=== PATIENT | male | born 1965 | race African-American/Black ===

== ENCOUNTER 2025-03-13 10:36 | Inpatient (IN) | payer OTHER ==
[~2025-03-13] VITALS: Ht 182.9 cm; Wt 84.9 kg
[~2025-03-13 10:36] MED LIST: EMPA10TA MT; FURO-151 MT; INSU100I28 SQ; LISI10TA26 MT; METF-414 PO
[2025-03-13 11:02] LABS: BASOPHILS % 1.2 % (0.0-2.0); DIFFERENTIAL COMMENT 0; EOSINOPHILS % 3.3 % (0.0-5.0); HEMATOCRIT. 40.3 % (42.0-52.0); HEMOGLOBIN. 12.8 g/dL (14.0-18.0); LYMPHOCYTES % 11.7 % (20.0-50.0); MEAN CORPUSCULAR HEMOGLOBIN 27.5 pg (28.0-32.0); MEAN CORPUSCULAR HGB CONC 31.8 g/dL (31.0-37.0); MEAN CORPUSCULAR VOLUME 86.5 fL (80.0-94.0); MEAN PLATELET VOLUME 8.8 fl (7.4-10.4); MONOCYTES % 7.1 % (2.0-8.0); NEUTROPHILS % 76.7 % (40.0-76.0); PLATELET 279 x1000/uL (130-400); RED BLOOD CELL COUNT 4.66 mill/uL (4.7-6.1); RED CELL DISTRIBUTION WIDTH 17.8 % (11.6-14.6)
[2025-03-13 11:21] LABS: CHLORIDE 109 mEq/L (98-107); POTASSIUM 3.9 mEq/L (3.5-5.1); SODIUM 140 mEq/L (136-145)
[2025-03-13 11:22] LABS: CALCIUM 8.3 mg/dL (8.7-10.4); CARBON DIOXIDE 24 mEq/L (21-32)
[2025-03-13 11:27] LABS: CREATININE 1.3 mg/dL (0.6-1.3); GLUCOSE 184 mg/dL (70-105); UREA NITROGEN BLOOD 22 mg/dL (9-23)
[2025-03-13 11:39] LABS: TROPONIN I HIGH SENSITIVITY 317 ng/L (3.0-53)
[2025-03-13 13:10] VITALS: BP 159/107; PULSE 94; RESP 20; TEMP 35.6; O2SAT 100
[2025-03-13] MEDS ORDERED: MAGNESIUM/ALUMINUM HYDROXIDE/SIMETHICONE 30ML UDC PO PRN (13:30)
[2025-03-13] MEDS ORDERED: IPRATROPIUM/ALBUTEROL 0.5-3(2.5)MG/3ML NEB HHN PRN (13:30)
[2025-03-13] MEDS ORDERED: DEXTROSE 50% WATER 50ML SYRINGE IV PRN (13:30)
[2025-03-13] MEDS ORDERED: DOCUSATE SODIUM 100MG CAPSULE PO PRN (13:30)
[2025-03-13] MEDS ORDERED: GUAIFENESIN 200MG/10ML SUGAR FREE UDC PO PRN (13:30)
[2025-03-13] MEDS ORDERED: ACETAMINOPHEN 325MG TABLET PO PRN (13:30)
[2025-03-13] MEDS ORDERED: ONDANSETRON HCL 4MG/2ML INJ IV PRN (13:30)
[2025-03-13] MEDS ORDERED: FURO40TA5 PO (13:44)
[2025-03-13] MEDS ORDERED: ASPI-1497 PO (13:44)
[2025-03-13] MEDS ORDERED: SPIR25TA6 PO (13:44)
[2025-03-13] MEDS ORDERED: ATOR40TA70 PO (13:44)
[2025-03-13] MEDS ORDERED: CARV6.2548 PO (13:44)
[2025-03-13] MEDS: ASPIRIN 81MG EC TABLET PO SCH (14:15)
[2025-03-13] MEDS: FUROSEMIDE 40MG/4ML VIAL IVP SCH ×2 (14:15→22:18)
[2025-03-13] MEDS: LISINOPRIL 10MG TABLET PO SCH (14:16)
[2025-03-13] MEDS: FUROSEMIDE 100MG/10ML VIAL IVP SCH (15:31)
[2025-03-13] MEDS: ENOXAPARIN 40MG/0.4ML SYR SUBCUT SCH (15:32)
[2025-03-13 15:34] LABS: CLARITY URINE CLEAR (CLEAR); COLOR URINE YELLOW (YELLOW); GLUCOSE URINE 3+ (NEGATIVE); KETONES URINE NEGATIVE (NEGATIVE); LEUKOCYTE ESTERASE URINE NEGATIVE (NEGATIVE); NITRITE URINE NEGATIVE (NEGATIVE); OCCULT BLOOD URINE 1+ (NEGATIVE); PROTEIN URINE 2+ (NEGATIVE); SPECIFIC GRAVITY URINE 1.015 (1.005-1.030)
[2025-03-13 15:47] LABS: *AMPHETAMINES SCREEN URINE NEGATIVE (NEGATIVE); *BARBITURATES SCREEN URINE NEGATIVE (NEGATIVE); *BENZODIAZEPINES SCREEN URINE NEGATIVE (NEGATIVE); *COCAINE SCREEN URINE NEGATIVE (NEGATIVE); CANNABINOID URINE SCREEN NEGATIVE (NEGATIVE); METHADONE URINE SCREEN NEGATIVE (NEGATIVE); OPIATES URINE SCREEN NEGATIVE (NEGATIVE); PHENCYCLIDINE URINE SCREEN NEGATIVE (NEGATIVE)
[2025-03-13 15:48] LABS: ECSTASY MDMA SCREEN URINE NEGATIVE (NEGATIVE)
[2025-03-13 15:54] LABS: BACTERIA URINE NONE SEEN; SQUAMOUS EPITHELIAL CELL URINE RARE /lpf (RARE/1+); WBC URINE 0-2 /hpf (0-2)
[2025-03-13 16:04] VITALS: BP 157/100; PULSE 96; RESP 22; TEMP 36.7; O2SAT 96
[2025-03-13] MEDS: BLOOD SUGAR DIAGNOSTIC STRIP TEST SCH (16:42)
[2025-03-13] MEDS: INSULIN LISPRO 100 UNITS/ML SUBCUT SCH ×2 (17:14)
[2025-03-13 17:50] LABS: ETHANOL BLOOD < 10 mg/dL (<10)
[2025-03-13 17:51] LABS: AMMONIA 90 uMol/L (<32)
[2025-03-13 17:54] LABS: TROPONIN I HIGH SENSITIVITY 328 ng/L (3.0-53)
[2025-03-13 20:00] VITALS: BP 143/99; PULSE 93; RESP 21; TEMP 36.4; O2SAT 100
[2025-03-13] MEDS ORDERED: INSULIN GLARGINE 100 UNITS/ML SUBCUT SCH (22:00)
[2025-03-13] MEDS: FAMOTIDINE 20MG TABLET PO SCH (22:18)
[2025-03-13] MEDS: ATORVASTATIN CALCIUM 40MG TABLET PO SCH (22:18)
[2025-03-13] MEDS: INSULIN GLARGINE 100 UNITS/ML SUBCUT SCH (22:29)
[2025-03-14] VITALS: BP 137/92; PULSE 84; RESP 20; TEMP 36.4; O2SAT 100
[2025-03-14 00:39] LABS: TROPONIN I HIGH SENSITIVITY 284 ng/L (3.0-53)
[2025-03-14 04:00] VITALS: BP 149/109; PULSE 89; RESP 20; TEMP 36.4; O2SAT 98
[2025-03-14 07:30] LABS: BASOPHILS % 1.2 % (0.0-2.0); DIFFERENTIAL COMMENT 0; EOSINOPHILS % 4.3 % (0.0-5.0); HEMATOCRIT. 39.6 % (42.0-52.0); HEMOGLOBIN. 12.7 g/dL (14.0-18.0); LYMPHOCYTES % 14.6 % (20.0-50.0); MEAN CORPUSCULAR HEMOGLOBIN 27.1 pg (28.0-32.0); MEAN CORPUSCULAR HGB CONC 31.9 g/dL (31.0-37.0); MEAN CORPUSCULAR VOLUME 84.8 fL (80.0-94.0); MEAN PLATELET VOLUME 8.5 fl (7.4-10.4); MONOCYTES % 7.7 % (2.0-8.0); NEUTROPHILS % 72.2 % (40.0-76.0); PLATELET 282 x1000/uL (130-400); RED BLOOD CELL COUNT 4.67 mill/uL (4.7-6.1); RED CELL DISTRIBUTION WIDTH 17.6 % (11.6-14.6); WHITE BLOOD COUNT 4.6 x1000/uL (4.5-11.0)
[2025-03-14 07:40] LABS: CARBON DIOXIDE 27 mEq/L (21-32); CHLORIDE 105 mEq/L (98-107); POTASSIUM 3.7 mEq/L (3.5-5.1); SODIUM 141 mEq/L (136-145)
[2025-03-14 07:41] LABS: CALCIUM 8.1 mg/dL (8.7-10.4)
[2025-03-14 07:46] LABS: CREATININE 1.3 mg/dL (0.6-1.3); GLUCOSE 86 mg/dL (70-105); TRIGLYCERIDE 31 mg/dL (0-150); UREA NITROGEN BLOOD 29 mg/dL (9-23)
[2025-03-14 07:47] LABS: LDL CHOLESTEROL 47 mg/dL (5-100)
[2025-03-14 07:48] LABS: ALANINE AMINOTRANSFERASE 46 IU/L (10-49); ASPARTATE AMINOTRANSFERASE 31 IU/L (<34); BILIRUBIN DIRECT 0.3 mg/dL (<=3.0); BILIRUBIN TOTAL 0.7 mg/dL (0.1-1.0); CHOLESTEROL 114 mg/dL (<200); HDL CHOLESTEROL 47 mg/dL (>55); PROTEIN TOTAL 7.7 g/dL (6.0-8.3)
[2025-03-14 07:58] VITALS: BP 150/104; PULSE 87; RESP 19; TEMP 36.2; O2SAT 94
[2025-03-14 11:42] VITALS: BP 138/94; PULSE 86; RESP 20; TEMP 36.6; O2SAT 94
[2025-03-14 15:54] VITALS: BP 159/104; PULSE 95; RESP 20; TEMP 36.3; O2SAT 97
[2025-03-14 20:00] VITALS: BP 155/98; PULSE 106; RESP 20; TEMP 36.3; O2SAT 98
[2025-03-14 22:19] LABS: GAMMA GLUTAMYL TRANSPEPTIDASE 134 IU/L (<73)
[2025-03-14 22:26] LABS: TROPONIN I HIGH SENSITIVITY 267 ng/L (3.0-53)
[2025-03-14] MEDS: RIFAXIMIN 550 MG TABLET PO SCH (22:30)
[2025-03-14] MEDS: LACTULOSE 20G/30ML UDC PO SCH (22:30)
[2025-03-14] MEDS: TRIAMCINOLONE ACETONIDE 0.1% CREAM 15GM TOP SCH (22:30)
[2025-03-14] MEDS: INSULIN GLARGINE 100 UNITS/ML SUBCUT SCH (22:32)
[2025-03-15] VITALS (7 sets, daily range): BP systolic 91–159; BP diastolic 58–114; PULSE 91–98; RESP 18–20; TEMP 36.1–37; O2SAT 98–100
[2025-03-15 01:29] LABS: TROPONIN I HIGH SENSITIVITY 266 ng/L (3.0-53)
[2025-03-15 06:36] LABS: BASOPHILS % 1.1 % (0.0-2.0); DIFFERENTIAL COMMENT 0; EOSINOPHILS % 5.9 % (0.0-5.0); HEMATOCRIT. 37.7 % (42.0-52.0); HEMOGLOBIN. 12.1 g/dL (14.0-18.0); LYMPHOCYTES % 12.2 % (20.0-50.0); MEAN CORPUSCULAR HEMOGLOBIN 27.1 pg (28.0-32.0); MEAN CORPUSCULAR HGB CONC 32.2 g/dL (31.0-37.0); MEAN CORPUSCULAR VOLUME 84.1 fL (80.0-94.0); MEAN PLATELET VOLUME 8.9 fl (7.4-10.4); MONOCYTES % 9.3 % (2.0-8.0); NEUTROPHILS % 71.5 % (40.0-76.0); PLATELET 268 x1000/uL (130-400); RED BLOOD CELL COUNT 4.49 mill/uL (4.7-6.1); RED CELL DISTRIBUTION WIDTH 17.3 % (11.6-14.6); WHITE BLOOD COUNT 4.6 x1000/uL (4.5-11.0)
[2025-03-15 06:37] LABS: CARBON DIOXIDE 28 mEq/L (21-32); CHLORIDE 105 mEq/L (98-107); POTASSIUM 3.7 mEq/L (3.5-5.1); SODIUM 139 mEq/L (136-145)
[2025-03-15 06:38] LABS: CALCIUM 8.3 mg/dL (8.7-10.4)
[2025-03-15 06:42] LABS: GLUCOSE 96 mg/dL (70-105); UREA NITROGEN BLOOD 29 mg/dL (9-23)
[2025-03-15 06:45] LABS: CREATININE 1.4 mg/dL (0.6-1.3)
[2025-03-15 08:01] LABS: TROPONIN I HIGH SENSITIVITY 287 ng/L (3.0-53)
[2025-03-15] MEDS: AMLODIPINE 5MG TABLET PO SCH ×2 (13:31→21:41)
[2025-03-15] MEDS: CLONIDINE 0.1MG TABLET PO PRN (14:22)
[2025-03-15] MEDS ORDERED: AMLODIPINE 5MG TABLET PO ONE (14:30)
[2025-03-15] MEDS: LISINOPRIL 20MG TABLET PO SCH (15:00)
[2025-03-16] VITALS: BP 117/89; PULSE 90; RESP 19; TEMP 36.4; O2SAT 98
[2025-03-16 04:00] VITALS: BP 128/89; PULSE 86; RESP 15; TEMP 36.9; O2SAT 99
[2025-03-16 08:00] VITALS: BP 121/85; PULSE 81; RESP 15; TEMP 36.6; O2SAT 98
[2025-03-16] MEDS ORDERED: AMLODIPINE 5MG TABLET PO SCH (09:00)
[2025-03-16] MEDS: FUROSEMIDE 40MG/4ML VIAL IVP SCH (09:44)
[2025-03-16 11:34] LABS: CARBON DIOXIDE 23 mEq/L (21-32); CHLORIDE 101 mEq/L (98-107); POTASSIUM 4.2 mEq/L (3.5-5.1); SODIUM 133 mEq/L (136-145)
[2025-03-16 11:35] LABS: CALCIUM 8.4 mg/dL (8.7-10.4)
[2025-03-16 11:39] LABS: CREATININE 1.3 mg/dL (0.6-1.3)
[2025-03-16 11:40] LABS: GLUCOSE 233 mg/dL (70-105); UREA NITROGEN BLOOD 22 mg/dL (9-23)
[2025-03-16 11:42] LABS: PHOSPHORUS 3.5 mg/dL (2.5-4.9)
[2025-03-16 12:00] VITALS: BP 125/81; PULSE 85; RESP 16; TEMP 36.4; O2SAT 98
[2025-03-16] MEDS: ACETAMINOPHEN 325MG TABLET PO PRN (12:03)
[2025-03-16] MEDS ORDERED: ASPI-1497 MT (12:26)
[2025-03-16] MEDS ORDERED: EMPA10TA MT (12:26)
[2025-03-16] MEDS ORDERED: LISI10TA26 MT (12:26)
[2025-03-16] MEDS ORDERED: FURO-151 MT (12:26)
[2025-03-16] MEDS ORDERED: SPIR25TA6 MT (12:26)
[2025-03-16] MEDS ORDERED: ATOR40TA70 MT (12:26)
[2025-03-16] MEDS ORDERED: CARV6.2548 MT (12:26)
[2025-03-16] MEDS ORDERED: INSU100I28 SQ (12:26)
[2025-03-16 12:47] VITALS: BP 129/75; PULSE 86; TEMP 97.6; O2SAT 98
== END 2025-03-16 17:35 | disposition home or self-care (01) | DRG 194 ==
LOC: ER 10:36 → EDBEDREQ 11:03 → 7WST 12:00 → EDBEDREQ 12:03 → EDBEDREQTM 12:03
PROVIDERS: ADMIT Internal Medicine; ATTEND Internal Medicine
DX: I11.0 Hypertensive heart disease with heart failure (principal); G93.41 Metabolic encephalopathy; I21.A1 Myocardial infarction type 2; E72.20 Disorder of urea cycle metabolism, unspecified; I25.10 Atherosclerotic heart disease of native coronary artery without angina pectoris; I50.23 Acute on chronic systolic (congestive) heart failure; K83.1 Obstruction of bile duct; L40.8 Other psoriasis; E11.65 Type 2 diabetes mellitus with hyperglycemia; E78.5 Hyperlipidemia, unspecified; K76.9 Liver disease, unspecified; Z60.2 Problems related to living alone; I25.2 Old myocardial infarction; Z79.4 Long term (current) use of insulin; Z91.148 Patient's other noncompliance with medication regimen for other reason; Z79.82 Long term (current) use of aspirin; Z79.84 Long term (current) use of oral hypoglycemic drugs; Z79.899 Other long term (current) drug therapy; Z87.891 Personal history of nicotine dependence; Z90.81 Acquired absence of spleen
CPT/HCPCS: 36415; 71045; 76700; 80048; 80061; 80076; 80305; 80320; 81003; 82140; 82962; 82977; 83735; 83880; 84100; 84484; 85025; 93005; 93306; 97161; 97166; 99285; J1650; J1815; J1940; G0480

== ENCOUNTER 2025-10-24 18:58 | Inpatient (IN) | payer MEDICAID ==
[~2025-10-24] VITALS: Ht 172.7 cm; Wt 86.2 kg
[~2025-10-24 18:58] MED LIST changes: +AMLO10TA80 PO; +ASPI-1497 MT; +ASPI-1497 PO; +ATOR40TA70 MT; +ATOR40TA70 PO; +CARV6.2548 MT; +CARV6.2548 PO; +LOSA100T33 PO; -METF-414 PO; +METO-539 PO; +SPIR25TA6 MT; +SPIR25TA6 PO
[2025-10-24 18:59] VITALS: O2SAT 94
[2025-10-24] MEDS ORDERED: MORPHINE SULFATE 4 MG/ML INJ (FOR IV/IM USE) IV ONE (19:15)
[2025-10-24 20:04] LABS: BASOPHILS % 1.1 % (0.0-2.0); EOSINOPHILS % 2.4 % (0.0-5.0); HEMATOCRIT. 38.4 % (42.0-52.0); HEMOGLOBIN. 12.3 g/dL (14.0-18.0); LYMPHOCYTES % 9.1 % (20.0-50.0); MEAN PLATELET VOLUME 7.9 fl (7.4-10.4); MONOCYTES % 7.0 % (2.0-8.0); NEUTROPHILS % 80.4 % (40.0-76.0); PLATELET 216 x1000/uL (130-400); RED BLOOD CELL COUNT 4.31 mill/uL (4.7-6.1); RED CELL DISTRIBUTION WIDTH 16.9 % (11.6-14.6)
[2025-10-24 20:20] LABS: INR 1.1
[2025-10-24 20:21] LABS: CREATININE 1.4 mg/dL (0.6-1.3)
[2025-10-24 20:22] LABS: PROTEIN TOTAL 7.2 g/dL (6.0-8.3); UREA NITROGEN BLOOD 19 mg/dL (9-23)
[2025-10-24 20:23] LABS: ASPARTATE AMINOTRANSFERASE 31 IU/L (<34)
[2025-10-24 20:24] LABS: BILIRUBIN DIRECT 0.3 mg/dL (<=3.0); BILIRUBIN TOTAL 0.6 mg/dL (0.1-1.0)
[2025-10-24 21:14] LABS: TROPONIN I HIGH SENSITIVITY 293 ng/L (3.0-53)
[2025-10-24] MEDS: MORPHINE SULFATE 4 MG/ML INJ (FOR IV/IM USE) IV SCH (21:36)
[2025-10-24] MEDS ORDERED: ACETAMINOPHEN 325MG TABLET PO PRN (23:30)
[2025-10-24] MEDS ORDERED: MAGNESIUM/ALUMINUM HYDROXIDE/SIMETHICONE 30ML UDC PO PRN (23:30)
[2025-10-24] MEDS ORDERED: HYDROCODONE/ACETAMINOPHEN 5/325MG TABLET PO PRN (23:30)
[2025-10-24] MEDS ORDERED: ONDANSETRON HCL 4MG/2ML INJ IV PRN (23:30)
[2025-10-24] MEDS ORDERED: ZOLPIDEM TARTRATE 5MG TABLET PO PRN (23:30)
[2025-10-25] MEDS: NITROGLYCERIN OINT 1GM/INCH UDPKT TD ONE (00:13)
[2025-10-25 00:14] LABS: TROPONIN I HIGH SENSITIVITY 309 ng/L (3.0-53)
[2025-10-25] MEDS: CLONIDINE 0.1MG TABLET PO PRN (01:16)
[2025-10-25 01:52] VITALS: BP 165/128; PULSE 65; RESP 18; TEMP 36.14
[2025-10-25 04:00] VITALS: BP 159/85; PULSE 56; RESP 18; TEMP 36.1; O2SAT 95
[2025-10-25] MEDS: MORPHINE SULFATE 2 MG/ML INJ (NOT FOR IM USE) IV PRN (06:04)
[2025-10-25 07:04] LABS: CREATININE 1.4 mg/dL (0.6-1.3)
[2025-10-25 07:05] LABS: UREA NITROGEN BLOOD 21 mg/dL (9-23)
[2025-10-25 07:15] LABS: BASOPHILS % 0.7 % (0.0-2.0); EOSINOPHILS % 3.6 % (0.0-5.0); HEMATOCRIT. 37.8 % (42.0-52.0); HEMOGLOBIN. 12.1 g/dL (14.0-18.0); LYMPHOCYTES % 10.8 % (20.0-50.0); MEAN PLATELET VOLUME 8.3 fl (7.4-10.4); MONOCYTES % 7.9 % (2.0-8.0); NEUTROPHILS % 77.0 % (40.0-76.0); PLATELET 207 x1000/uL (130-400); RED BLOOD CELL COUNT 4.19 mill/uL (4.7-6.1); RED CELL DISTRIBUTION WIDTH 17.0 % (11.6-14.6)
[2025-10-25 07:28] LABS: TROPONIN I HIGH SENSITIVITY 246 ng/L (3.0-53)
[2025-10-25 08:00] VITALS: BP 144/105; PULSE 74; RESP 19; TEMP 36.4; O2SAT 100
[2025-10-25] MEDS: ENOXAPARIN 40MG/0.4ML SYR SUBCUT SCH (08:54)
[2025-10-25] MEDS: FUROSEMIDE 40MG/4ML VIAL IVP SCH (09:00)
[2025-10-25] MEDS: PANTOPRAZOLE SODIUM 40 MG/VIAL IV SCH (09:00)
[2025-10-25] MEDS: SPIRONOLACTONE 25MG TABLET PO SCH (09:45)
[2025-10-25 12:00] VITALS: BP 174/119; PULSE 79; RESP 20; TEMP 36.5; O2SAT 97
[2025-10-25 15:36] LABS: *AMPHETAMINES SCREEN URINE NEGATIVE (NEGATIVE); *BARBITURATES SCREEN URINE NEGATIVE (NEGATIVE); *BENZODIAZEPINES SCREEN URINE NEGATIVE (NEGATIVE); *COCAINE SCREEN URINE NEGATIVE (NEGATIVE); METHADONE URINE SCREEN NEGATIVE (NEGATIVE); OPIATES URINE SCREEN PRESUMPTIVE POSITIVE (NEGATIVE)
[2025-10-25 15:37] LABS: CANNABINOID URINE SCREEN NEGATIVE (NEGATIVE); ECSTASY MDMA SCREEN URINE NEGATIVE (NEGATIVE); PHENCYCLIDINE URINE SCREEN NEGATIVE (NEGATIVE)
[2025-10-25 16:06] LABS: GLUCOSE URINE NEGATIVE (NEGATIVE); KETONES URINE NEGATIVE (NEGATIVE); LEUKOCYTE ESTERASE URINE NEGATIVE (NEGATIVE); NITRITE URINE NEGATIVE (NEGATIVE); OCCULT BLOOD URINE 2+ (NEGATIVE); PH URINE 5.5 (4.5-8.0); PROTEIN URINE 3+ (NEGATIVE); SPECIFIC GRAVITY URINE 1.026 (1.005-1.030); UROBILINOGEN URINE 1.0 E.U./dL (0.2-1.0)
[2025-10-25 16:32] LABS: TROPONIN I HIGH SENSITIVITY 271 ng/L (3.0-53)
[2025-10-25 16:43] LABS: CLARITY URINE SL HAZY (CLEAR); COLOR URINE YELLOW (YELLOW)
[2025-10-25 16:46] LABS: WBC URINE 0-2 /hpf (0-2)
[2025-10-25 16:47] LABS: RBC URINE 0-2 /hpf (0-2); SQUAMOUS EPITHELIAL CELL URINE RARE /lpf (RARE/1+)
[2025-10-25 16:48] LABS: BACTERIA URINE TRACE; HYALINE CASTS URINE 0-5 /lpf
[2025-10-25 20:00] VITALS: BP 142/98; PULSE 80; RESP 18; TEMP 36.8; O2SAT 96
[2025-10-25] MEDS: CARVEDILOL 6.25 MG TABLET PO SCH (21:16)
[2025-10-25] MEDS: ATORVASTATIN CALCIUM 40MG TABLET PO SCH (21:17)
[2025-10-25] MEDS: INSULIN GLARGINE 100 UNITS/ML SUBCUT SCH (21:49)
[2025-10-26] VITALS: BP 153/100; PULSE 78; RESP 20; TEMP 36.3; O2SAT 94
[2025-10-26 04:00] VITALS: BP 161/110; PULSE 70; RESP 20; TEMP 36.4; O2SAT 96
[2025-10-26 06:38] LABS: BASOPHILS % 1.0 % (0.0-2.0); EOSINOPHILS % 4.4 % (0.0-5.0); HEMATOCRIT. 36.1 % (42.0-52.0); HEMOGLOBIN. 11.8 g/dL (14.0-18.0); LYMPHOCYTES % 9.5 % (20.0-50.0); MEAN PLATELET VOLUME 8.7 fl (7.4-10.4); MONOCYTES % 8.4 % (2.0-8.0); NEUTROPHILS % 76.7 % (40.0-76.0); PLATELET 220 x1000/uL (130-400); RED BLOOD CELL COUNT 4.08 mill/uL (4.7-6.1); RED CELL DISTRIBUTION WIDTH 16.7 % (11.6-14.6)
[2025-10-26 06:53] LABS: CREATININE 1.5 mg/dL (0.6-1.3); UREA NITROGEN BLOOD 26.0 mg/dL (9-23)
[2025-10-26 08:00] VITALS: BP 150/110; PULSE 75; RESP 18; TEMP 36.7
[2025-10-26] MEDS ORDERED: ASPIRIN 81MG EC TABLET PO SCH (09:00)
[2025-10-26] MEDS: LIDOCAINE HCL 1% 10 MG/ML 10ML VIAL ONE (10:35)
[2025-10-26] MEDS: SODIUM BICARBONATE 4.2% 2.5MEQ/5ML VIAL IV ONE (10:36)
[2025-10-26 12:00] VITALS: BP 180/121; PULSE 73; RESP 18; TEMP 36.1
[2025-10-26] MEDS: LISINOPRIL 10MG TABLET PO SCH (15:11)
[2025-10-26] MEDS: EMPAGLIFLOZIN 10MG TABLET PO SCH (15:13)
[2025-10-26 16:00] VITALS: BP 167/114; PULSE 86; RESP 18; TEMP 36.3
[2025-10-26 20:00] VITALS: BP 138/97; PULSE 86; RESP 18; TEMP 36.4
[2025-10-27] VITALS (7 sets, daily range): BP systolic 128–171; BP diastolic 85–111; PULSE 68–90; RESP 18–22; TEMP 36.1–36.7; O2SAT 99–100
[2025-10-27 06:44] LABS: BASOPHILS % 1.1 % (0.0-2.0); EOSINOPHILS % 5.3 % (0.0-5.0); HEMATOCRIT. 39.1 % (42.0-52.0); HEMOGLOBIN. 12.4 g/dL (14.0-18.0); LYMPHOCYTES % 10.0 % (20.0-50.0); MEAN PLATELET VOLUME 9.3 fl (7.4-10.4); MONOCYTES % 7.2 % (2.0-8.0); NEUTROPHILS % 76.4 % (40.0-76.0); PLATELET 219 x1000/uL (130-400); RED BLOOD CELL COUNT 4.37 mill/uL (4.7-6.1); RED CELL DISTRIBUTION WIDTH 16.3 % (11.6-14.6)
[2025-10-27 06:49] LABS: CREATININE 1.4 mg/dL (0.6-1.3); UREA NITROGEN BLOOD 23 mg/dL (9-23)
[2025-10-27] MEDS ORDERED: ISOS1TAB2 MT (14:50)
[2025-10-27] MEDS ORDERED: EMPA10TA MT (14:50)
[2025-10-27] MEDS: HYDRALAZINE HCL 25MG TABLET PO SCH (16:00)
[2025-10-27] MEDS: ISOSORBIDE DINITRATE 10MG TABLET PO SCH (16:00)
[2025-10-28] MEDS ORDERED: HYDR453.3 TP (21:53)
== END 2025-10-27 17:11 | disposition home or self-care (01) ==
LOC: ER 18:58 → EDBEDREQ 10-25 00:02 → EDBEDREQTM 10-25 00:02 → ENRESERV 10-25 00:50 → 8WST 10-25 01:37
PROVIDERS: ADMIT Internal Medicine; ATTEND Internal Medicine
PROC: 0W9G3ZZ Drainage of Peritoneal Cavity, Percutaneous Approach (ICD-10-PCS; principal; 2025-10-26)
DX: R18.8 Other ascites (principal); I50.23 Acute on chronic systolic (congestive) heart failure; I21.A1 Myocardial infarction type 2; I16.1 Hypertensive emergency; N17.9 Acute kidney failure, unspecified; E11.22 Type 2 diabetes mellitus with diabetic chronic kidney disease; D64.9 Anemia, unspecified; I13.0 Hypertensive heart and chronic kidney disease with heart failure and stage 1 through stage 4 chronic kidney disease, or unspecified chronic kidney disease; N18.9 Chronic kidney disease, unspecified; F15.90 Other stimulant use, unspecified, uncomplicated; K59.00 Constipation, unspecified; Z91.148 Patient's other noncompliance with medication regimen for other reason; I25.2 Old myocardial infarction; Z90.81 Acquired absence of spleen
CPT/HCPCS: 36415; 49083; 71045; 74176; 80048; 80076; 80305; 81003; 82962; 83735; 83880; 84443; 84484; 85025; 93005; 93970; 99291; A4606; A4615; J1650; J1815; J1938; J2003; J2270; J2470; J3490

== ENCOUNTER 2025-10-28 20:59 | Emergency (ER) | payer MEDICAID ==
[~2025-10-28] VITALS: Ht 182.9 cm; Wt 90.0 kg
[~2025-10-28 20:59] MED LIST changes: -ATOR40TA70 MT; -CARV6.2548 MT; +ISOS1TAB2 MT; -LOSA100T33 PO; -METO-539 PO; -SPIR25TA6 MT
[2025-10-28 21:10] VITALS: TEMP 36.6; O2SAT 96
[2025-10-28] MEDS ORDERED: HYDR453.3 TP (21:53)
[2025-10-28 22:05] VITALS: BP 180/114; PULSE 94; RESP 20; O2SAT 95
== END 2025-10-28 22:07 | disposition home or self-care (01) ==
LOC: ER 20:59
DX: R21 Rash and other nonspecific skin eruption (principal); E11.9 Type 2 diabetes mellitus without complications; I11.0 Hypertensive heart disease with heart failure; I25.2 Old myocardial infarction; I50.9 Heart failure, unspecified; Z79.4 Long term (current) use of insulin; Z79.82 Long term (current) use of aspirin; Z79.84 Long term (current) use of oral hypoglycemic drugs; Z79.899 Other long term (current) drug therapy; Z90.81 Acquired absence of spleen
CPT/HCPCS: 99283